=== PATIENT | female | born 1960 | race Two or more races ===

== ENCOUNTER 2024-04-03 12:10 | Emergency (ER) | payer OTHER ==
[~2024-04-03] VITALS: Ht 165.1 cm; Wt 70.0 kg
[2024-04-03 13:57] VITALS: BP 116/64; PULSE 78; RESP 16; TEMP 98.5; O2SAT 97
[2024-04-03] MEDS ORDERED: IBUP-1454 PO (14:34)
[2024-04-03] MEDS ORDERED: CYCL-837 PO (14:34)
[2024-04-03] MEDS: methylPREDNISolone SOD SUCC 125 MG/2 ML VL IM ONE (14:36)
[2024-04-03] MEDS: KETOROLAC TROMETH 30 MG/ML 1ML VIAL IM ONE (14:36)
== END 2024-04-03 14:41 | disposition home or self-care (01) ==
LOC: ER 12:56
DX: S13.9XXA Sprain of joints and ligaments of unspecified parts of neck, initial encounter (principal); X50.0XXA Overexertion from strenuous movement or load, initial encounter; Y93.89 Activity, other specified; Y92.69 Other specified industrial and construction area as the place of occurrence of the external cause; Y99.8 Other external cause status
CPT/HCPCS: 96372; 99284; J1885; J2919

== ENCOUNTER 2024-04-05 12:02 | Emergency (ER) | payer OTHER ==
[~2024-04-05] VITALS: Ht 165.1 cm; Wt 73.2 kg
[~2024-04-05 12:02] MED LIST: CYCL-837 PO; IBUP-1454 PO
[2024-04-05 13:41] VITALS: BP 130/75; PULSE 77; RESP 16; TEMP 98.7; O2SAT 97
[2024-04-05] MEDS: HYDROcodone-ACET 5/325MG TAB PO ONE (13:59)
[2024-04-05] MEDS ORDERED: METH-1182 PO (14:00)
[2024-04-05] MEDS ORDERED: IBUP-1456 PO (14:00)
== END 2024-04-05 14:13 | disposition home or self-care (01) ==
LOC: ER 12:02
DX: S16.1XXD Strain of muscle, fascia and tendon at neck level, subsequent encounter (principal); R51.9 Headache, unspecified; Z79.899 Other long term (current) drug therapy; W20.8XXD Other cause of strike by thrown, projected or falling object, subsequent encounter
CPT/HCPCS: 72040